=== PATIENT | male | born 1975 | race Caucasian/White ===

== ENCOUNTER 2017-10-18 14:49 | Emergency (ER) | payer BC, SELFPAY ==
[2017-10-18 15:56] LABS: Clarity Clear (Clear)
[2017-10-18 15:57] LABS: Bilirubin Negative (Negative); Blood, Urine Negative (Negative); Glucose, Urine (Dipstick) Negative (Negative); Leukocyte Negative (Negative); Nitrite Negative (Negative); Protein, Urine (Dipstick) Trace mg/dL (Neg-Trace); Urobilinogen 0.2 mg/dL (0.2-1.0); pH, Urine 8.5 (5.0-9.0)
[2017-10-18 16:14] LABS: Amphetamine Detected (NotDetected); Barbiturates Screen Not Detected (NotDetected); Benzodiazepine Screen Not Detected (NotDetected); Cocaine Metabolite Screen Not Detected (NotDetected); Medtox Control Line Valid? VALID (VALID); Methadone Not Detected (NotDetected); Methamphetamine Not Detected (NotDetected); Opiate Screen Not Detected (NotDetected); Oxycodone Screen Not Detected (NotDetected); Phencyclidine (PCP) Not Detected (NotDetected); THC/Cannabinoid Screen Detected (NotDetected); Tricyclic Screen Not Detected (NotDetected)
[2017-10-18 16:46] LABS: ALT (SGPT) 11 U/L (8-55); AST (SGOT) 14 U/L (5-34); Alkaline Phosphatase 65 U/L (40-150); Anion Gap 12 mmol/L (10-20); BUN (Urea Nitrogen) 10 mg/dL (8.9-20.6); Bilirubin, Total 0.3 mg/dL (0.2-1.2); Calc. Creatinine Clearance 0 mL/min (70-130); Calcium 9.5 mg/dL (7.8-10.44); Carbon Dioxide 27 mmol/L (22-29); Chloride 103 mmol/L (98-107); Estimated GFR-MDRD 89; Globulin 2.7 g/dL (2.4-3.5); Glucose 99 mg/dL (70-105); Potassium 4.2 mmol/L (3.5-5.1); Protein, Total 6.7 g/dL (6.0-8.3); Sodium 138 mmol/L (136-145)
[2017-10-18 16:48] LABS: #Basophils 0.1 thou/uL (0.0-0.2); #Eosinphils 0.1 thou/uL (0.0-0.7); #Lymphocytes 2.7 thou/uL (1.20-3.40); #Monocytes 0.8 thou/uL (0.11-0.59); #Neutrophils 10.4 thou/uL (1.40-6.50); %Basophils 0.9 % (0.0-1.0); %Eosinophils 0.7 % (0.0-10.0); %Lymphocytes 19.2 % (21.0-51.0); %Monocytes 5.8 % (0.0-10.0); %Neutrophils 73.4 % (42.0-75.0); Eosinophils 1 % (0-10); Hemoglobin 13.9 g/dL (14.0-18.0); Lymphocytes 25 % (21-51); MDiff Complete? YES; Mean Corpuscular HGB CONC 36.4 g/dL (32.0-36.0); Mean Corpuscular Hemoglobin 30.2 pg (27.0-31.0); Mean Corpuscular Volume 83.1 fL (78.0-98.0); Mean Platelet Volume 5.6 fL (7.4-10.4); Monocytes 4 % (0-10); Neutrophil 69 % (42-75); Platelet Count 244 thou/uL (130-400); RBC Distribution Width 11.1 % (11.5-14.5); Red Blood Cell (RBC) Count 4.58 mill/uL (4.70-6.10); Small Platelets SLIGHT; White Blood Cell (WBC) Count 14.2 thou/uL (4.8-10.8)
[2017-10-18] MEDS ORDERED: metroNIDAZOLE 250 MG TAB ONE (17:02)
[2017-10-18] MEDS ORDERED: Ketorolac Tromethamine 60 MG/2 ML VIAL ONE (17:02)
[2017-10-18] MEDS ORDERED: Sulfameth/Trimethoprim DS 800-160mg TAB ONE (17:02)
--- NOTE | 2017-10-18 18:37 | CT ---
CT ABDOMEN AND PELVIS WITHOUT CONTRAST 10/18/[address] of the abdomen and pelvis was performed for evaluation of lower abdominal pain. hematuria w as said to be present as well. Axial slices were acquired, then coronal and sagittal reconstructions were done without any oral or IV contrast. The patient has sigmoid diverticulosis and there is a very small amount of haziness around the sigmoi d colon in this location. Mild acute diverticulitis is suspected. This loop of colon does indent the urinary bladder slightly from the left side. The lung bases are clear. the liver, spleen, pancreas, adrenal glands, gallbladder, kidneys, and abdo omar aorta appear normal within the limitations of a noncontrast study. There was no sign of urinary tract calculi or obstruction. The major finding in the bowel was slight haziness around the sigmoid colon. There is some nonspecifi c fluid filled loops of small bowel which are not dilated. I could see no inflammatory changes around the base of the cecum. No free air, free fluid of concern, or other findings were encountered. CT of the pelvis was remarkable for the sigmoid findings only. There were no other items of concern h ere. IMPRESSION: Findings consistent with mild sigmoid diverticulitis. POS: HOME
== END 2017-10-18 17:17 | disposition home or self-care (01) ==
LOC: BURERS 14:49
DX: K57.32 Diverticulitis of large intestine without perforation or abscess without bleeding (principal); F31.9 Bipolar disorder, unspecified; F17.210 Nicotine dependence, cigarettes, uncomplicated
CPT/HCPCS: 74176; 80053; 80306; 81003; 85025; J1885